=== PATIENT | female | born 1960 | race Caucasian/White ===

== ENCOUNTER → 2024-12-04 14:40 | Outpatient (BNVA) | payer OTHER, SELFPAY | PROVIDERS: Visit Provider Specialist | DX: G56.03 Carpal tunnel syndrome, bilateral upper limbs (principal); M19.041 Primary osteoarthritis, right hand; M19.042 Primary osteoarthritis, left hand; M06.4 Inflammatory polyarthropathy | CPT/HCPCS: 36415; 73110; 80053; 84550; 85025; 85651; 86140; 86200; 86225; 86235; 86431; 99204 ==

== ENCOUNTER 2025-03-09 01:54 | Emergency (ER) | payer OTHER, SELFPAY ==
--- OUTSIDE RECORDS SUMMARY | 2025-03-09 01:58 | XMS_ITS | Clinical Summary ---
Author Organization [facility] Address [address] [facility] [address] [place] [address] Phone Care Team Providers Care Sales Driver Name Role Phone Kishan Baker MD Primary Care Provider [phone] Allergies Active Allergy Reactions Criticality Noted Date Comments Azithromycin Hives High 05/30/2024 Cefazolin Hives High 05/24/2024 Cephalexin Hives High 05/24/2024 Medications albuterol (PROVENTIL,VENTOLI N) 2.5 mg /3 mL (0.083 %) Solution for NebulizationIndica tions:Panlobular emphysema (CMS/HCC) Take 3 mL (2.5 mg) by inhalation every 4 hours as needed for Shortness of Breath or Wheezing. 300 mL 08/07/19 25 Active albuterol sulfate HFA 90 mcg/actuation aerosol inhalerIndications :Panlobular emphysema (CMS/HCC) Take 2 Puffs by inhalation every 4 hours as needed for Shortness of Breath or Wheezing. 18 Gram 08/07/19 25 Active budesonide-formote roL (SYMBICORT) 160-4.5 mcg/actuation HFA Aerosol InhalerIndications :Panlobular emphysema (CMS/HCC) Take 2 Puffs by inhalation 2 times daily. 10.2 Gram 08/07/19 25 Active busPIRone (BUSPAR) 5 mg tabletIndications: SHANE (generalized anxiety disorder) Take 1 Tablet (5 mg) by mouth 2 times daily. Replaces xanax 60 Tablet 08/07/19 25 Active cetirizine (ZyrTEC) 10 mg tabletIndications: Seasonal allergic rhinitis, unspecified trigger Take 1 Tablet (10 mg) by mouth daily. 100 Tablet 1 08/07/19 25 Active cyclobenzaprine (FLEXERIL) 10 mg tabletIndications: Chronic bilateral low back pain with bilateral sciatica,S/P spinal surgery Take 1 Tablet (10 mg) by mouth 3 times daily as needed for Spasm. 90 Tablet 5 08/07/19 25 Active ferrous sulfate 325 mg (65 mg iron) tabletIndications: Iron deficiency anemia secondary to inadequate dietary iron intake Take 1 Tablet (325 mg) by mouth daily. 100 Tablet 3 08/07/19 25 Active naloxone (NARCAN) 4 mg/spray [place], Non-Aerosol Administer 1 [place] (4 mg) in one nostril (alternate nostril with each dose) one time as needed for Respiration (slowed with opioid use). Push plunger to administer. Call 911. May repeat dose, every 2-3 minutes, if the person does not wake up or breathing is not improved. 1 Each 2 08/07/19 25 Active pravastatin (PRAVACHOL) 40 mg tabletIndications: Mixed hyperlipidemia Take 1 Tablet (40 mg) by mouth daily with supper. 100 Tablet 3 08/07/19 25 Active valACYclovir (VALTREX) 1 gram tabletIndications: Recurrent cold sores Take 2 g twice daily for 1 day at the onset of cold sore 30 Tablet 1 08/07/19 25 Active diphenhydrAMINE (BENADRYL) 25 mg tablet Take 25 mg by mouth. Active oxyBUTYnin (DITROPAN XL) 10 mg Extended Release 24 hour tabletIndications: Urinary frequency Take 1 Tablet (10 mg) by mouth daily. 30 Tablet 3 12/13/19 25 Active pregabalin (LYRICA) 50 mg Capsule Take 1 Capsule (50 mg) by mouth daily at bedtime. 30 Capsule 2 12/22/19 25 Active portable oxygenIndications: Chronic bilateral low back pain without sciatica,Shortness of breath,Panlobular emphysema (CMS/HCC) Face to Face completed within 30 days: yes Length of Need: 99 months By: Nasal Cannula Continuously at 2 L/min. 1 Each 12/22/19 25 Active oxygen home deliveryIndication s:Chronic bilateral low back pain without sciatica,Shortness of breath,Panlobular emphysema (CMS/HCC) Home Oxygen Concentrator yes at 2 L/M Rest, 2 L/M Activity, 2 L/M Sleep, Delivery Device: Nasal Cannula Portability: yes, 2 L/M Rest, 2 L/M Activity, May provide device best for patient needs(E system,home fill, conserving device) Length of Need: 99 months 1 Each 12/22/19 25 Active DULoxetine (Cymbalta) 60 mg Capsule, Delayed Release(E.C.)Indic ations:SHANE (generalized anxiety disorder),Chronic bilateral low back pain with bilateral sciatica,Moderate episode of recurrent major depressive disorder (CMS/HCC) Take 1 Capsule (60 mg) by mouth 2 times daily. 180 Capsule 1 12/26/19 25 Active pregabalin (LYRICA) 50 mg Capsule Take 1 Capsule (50 mg) by mouth daily at bedtime. 2-week supply while waiting for mail order 14 Capsule 12/28/19 25 Active meloxicam (MOBIC) 7.5 mg tablet Take 1 Tablet (7.5 mg) by mouth daily. 30 Tablet 5 01/04/20 25 Active triamcinolone acetonide (KENALOG) 0.1 % CreamIndications:P ruritic rash APPLY CREAM EXTERNALLY TO AFFECTED AREA TWICE DAILY 80 Gram 1 01/09/20 25 Active traZODone (DESYREL) 100 mg tabletIndications: Moderate episode of recurrent major depressive disorder (CMS/HCC) Take 1 Tablet (100 mg) by mouth daily at bedtime. 90 Tablet 1 02/10/20 25 Active traZODone (DESYREL) 100 mg tabletIndications: Moderate episode of recurrent major depressive disorder (CMS/HCC) Take 1 Tablet (100 mg) by mouth daily at bedtime. 90 Tablet 1 12/26/19 25 025 Discontin ued(Reord er) Active Problems Problem Noted Date Diagnosed Date Chronic respiratory failure with hypoxia 025 Cellulitis of upper extremity 10/10/2024 Flexural atopic dermatitis 10/10/2024 Methamphetamine abuse 08/03/2024 Panlobular emphysema 08/03/2024 Tobacco use 08/03/2024 Protein-calorie malnutrition, moderate History of lung cancer 08/03/2024 S/P lobectomy of lung 08/03/2024 S/P spinal surgery 08/03/2024 PAD (peripheral artery disease) 06/12/2024 Claudication of both lower extremities Moderate episode of recurrent major depressive d isorder 05/30/2024 Chronic neck pain 05/30/2024 Chronic bilateral low back pain with bilateral s ciatica 05/30/2024 SHANE (generalized anxiety disorder) 05/30/2024 Mixed hyperlipidemia 05/30/2024 Resolved Problems Problem Noted Date Diagnosed Date Resolved Date Acute on chronic low back pain 06/12/2024 08/03/2024 Encounters Date Type Department Care Team Description 02/13/2025 External Device Data [facility] ABSTRACTION Provider, Abstract 02/09/[address] [phone] Kishan Baker MD Pharmacy Change 01/08/[address] [phone] Deyanira Wright, CARSON Pruritic rash 01/03/2025 Orders Only [facility] [address] [place] [address] Kishan Baker MD 01/03/2025 Results Follow-Up [facility] [address] [place] [address] Kishan Baker MD XR HAND 3+ VW LEFT 01/03/[address] [phone] Kishan Baker MD Results 12/28/2024 Results Follow-Up [address] [phone] Deyanira Wright, CARSON XR CHEST PA AND LATERAL 2 VW 12/27/2024 11:18 AM CDT - 12/27/2024 11:59 PM CDT Hospital Encounter [facility] [address] [place] [phone] Kishan Baker MD Discharge Disposition: Home or Self Care 12/27/2024 11:17 AM CDT - 12/27/2024 11:59 PM CDT Hospital Encounter [facility] [address] [phone] Deyanira Wright NP Marino, Joseph Aaron, MD Discharge Disposition: Home or Self Care 12/27/[address] [phone] Kishan Baker MD Pharmacy Change 12/25/2024 1:40 PM CDT Video Visit [address] [phone] Kishan Baker MD Chronic respiratory failure with hypoxia (CMS/HCC) (Primary Dx); SHANE (generalized anxiety disorder); Chronic bilateral low back pain with bilateral sciatica; Moderate episode of recurrent major depressive disorder (CMS/HCC); Left hand pain; Panlobular emphysema (CMS/HCC) 12/25/[address] [phone] Kishan Baker MD Home Monitoring Video Visit; Patient Communication 12/21/2024 4:20 PM CDT Office Visit [address] [phone] Deyanira Wright NP Shortness of breath (Primary Dx); Chronic bilateral low back pain without sciatica; Wheezing; Panlobular emphysema (CMS/HCC) 12/21/[address] [phone] Kishan Baker MD Breathing Problem 12/18/[address] [phone] Kishan Baker MD 12/14/2024 Telephone [facility] [address] [address] Rosemary Shyanne Bradshaw, TRANSITION MGR Referral 12/13/2024 5:00 PM CDT Office Visit [address] [phone] Arash Madeleine Kisha, LINE INSTALLER REPAIRER Left hand pain (Primary Dx); Pneumonia due to infectious organism, unspecified laterality, unspecified part of lung 12/13/[address] [phone] Mindy Antoineily Kisha, LINE INSTALLER REPAIRER Left hand pain (Primary Dx) 12/13/[address] [phone] Kishan Baker MD Carpal Tunnel 12/12/2024 Orders Only [address] [phone] Deyanira Wright, HOME ECONOMIST Urinary frequency 12/12/[address] [phone] Kishan Baker MD Question 12/08/[address] [phone] Kishan Baker MD Information from Last 3 Months Immunizations Immunization Administration Dates Next Due INFLUENZA VACCINE TRIVALENT SPLIT VIRUS, (6 MOS UP), 0.5ML (PF), IM 05/30/2024 Family History Medical History Relation Name Comments Breast Cancer Mother Colon Cancer Neg Hx Relation Name Status Comments Mother Social History Tobacco Use Types Packs/Day Years Used Date Smoking Tobacco: Every Day Cigarettes 1 45.7 Started: 1979 Smokeless Tobacco: Never Tobacco Cessation:Ready to Q uit: No; Counseling Given: Yes Alcohol Use Standard Drinks/Week Comments Yes 0 (1 standard drink = 0.6 oz pur e alcohol) Feeling Safe Answer Date Recorded Are you in a relationship wi th someone who hurts you emotionally and/or physically? No 10/10/2024 Comments No Sex and Gender Information Value Date Recorded Sex Assigned at Not on file Legal Sex Female 12:15 PM BASKET PATCHER Gender Identity Not on file Sexual Orientation Not on file Last Filed Vital Signs Vital Sign Reading Time Taken Comments Blood Pressure 92/56 12/21/2024 4:13 PM CDT Pulse 103 12/21/2024 4:13 PM CDT Temperature 36.4 C (97.6 F) 12/21/2024 4:13 PM CDT Respiratory Rate 20 12/21/2024 4:13 PM CDT Oxygen Saturation 90% 12/21/2024 4:13 PM CDT RA Inhaled Oxygen Concentration - - Weight 49 kg (108 lb) 12/25/2024 2:02 PM CDT Height 162.6 cm (5' 4 ) 12/25/2024 2:02 PM CDT Body Mass Index 18.54 12/25/2024 2:02 PM CDT Plan of Treatment Upcoming Encounters Date Type Department Care Team (Late st Contact Info) Description 03/09/2025 10:00 AM CDT Office Visit [facility] [address] [phone] Marianela Garber, CHANDA [address] [address] 03/09/2025 11:45 AM CDT Telemed [facility] Telemed[facility] - [place] [address] [place] [address] Abran Hou MD [address] [facility] [place] [address] 03/27/2025 2:00 PM CDT Telemed [facility] - [place] [address] [place] [address] Kishan Baker MD [address] [place] [address] Jasmin Chavarria, CARSON [address] [place] [address] 06/19/2025 3:00 PM BASKET PATCHER Office Visit [facility] Rheumatology- Jose Farley [address] [place] [address] Ana Evans MD [address] [place] [address] Health Maintenance Due Date Last Done Comments DTAP/TDAP/TD VACCINES (1 - Tdap) 09/30/1979 HPV/Cotest (21-29) 1981 CERVICAL CANCER SCREENING 1990 HPV/Cotest (30-65) 1990 PAP SMEAR 1990 BREAST CANCER SCREENING 2000 COLORECTAL SCREENING 2005 Colorectal Cancer Screening 2005 FIT-DNA Q 3 years 2005 FIT/FOBT Q 1 year 2005 Flex Sig/CT Colonography Q 5 years 2005 ZOSTER VACCINE (1 of 2) 2010 RSV VACCINE (60+ or ) (1 - Risk 60-74 years 1-dose series) 2020 INFLUENZA VACCINE (#1) 2025 05/30/2024 Procedures Procedure Name Priority Date/Time Associated Diagnosis Comments XR HAND 3+ VW LEFT Routine 12/27/2024 11 :36 AM CDT Left hand pain XR CHEST PA AND LATERAL 2 VW Routine 12/27/2024 11:36 AM CDT Shortness of breath Wheezing from Last 3 Months Results * XR HAND 3+ VW LEFT (12/27/2024 11:36 AM CDT) Anatomical Region Laterality Modality Wrist / Hand Computed Radiogr aphy 12/27/2024 11:3 6 AM CDT Impressions 12/28/2024 5:16 AM CDT IMPRESSION: Please see below. Exam: XR HAND 3+ VW LEFT Date/Time of Exam: 12/27/2024 11:36 AM Reason For Exam: See Diagnosis. Diagnosis: Left hand pain. Comparison: None Findings: No fracture or significant focal osseous abnormality. Moderate degenerative changes at the trapezium/trapezoid and to a lesser degree scaphoid and first carpal metacarpal articulations. Moderate degenerative changes at the first through fifth DIP and to a lesser degree second through fifth PIP joint spaces. No soft tissue swelling. IMPRESSION: 1. Osteoarthritis. Narrative Procedure Note Ian Lemus MD - 12/28/2024 IMPRESSION: Please see below. Exam: XR HAND 3+ VW LEFT Date/Time of Exam: 12/27/2024 11:36 AM Reason For Exam: See Diagnosis. Diagnosis: Left hand pain. Comparison: None Findings: No fracture or significant focal osseous abnormality. Moderate degenerative changes at the trapezium/trapezoid and to a lesser degree scaphoid and first carpal metacarpal articulations. Moderate degenerative changes at the first through fifth DIP and to a lesser degree second through fifth PIP joint spaces. No soft tissue swelling. IMPRESSION: 1. Osteoarthritis. Kishan Baker MD DIAGNOSTIC IMAGING ORDERA BLES Final Result * XR CHEST PA AND LATERAL 2 VW (12/27/2024 11:36 AM CDT) Anatomical Region Laterality Modality Chest Computed Radiogr aphy 12/27/2024 11:3 6 AM CDT Impressions 12/27/2024 2:59 PM CDT IMPRESSION: No new acute radiographic findings or significant interval change. Narrative 12/27/2024 2:59 PM CDT EXAM: XR CHEST PA AND LATERAL 2 VW DATE/TIME OF EXAM: 12/27/2024 11:36 AM REASON FOR EXAM: See Diagnosis DIAGNOSIS: Shortness of breath; Wheezing COMPARISON: 10/25/2024 FINDINGS: - Lines/tubes: None. - Cardiomediastinal: Contours are within normal limits. - Lungs/pleura: Similar radiographic appearance of the lungs with large lung volumes, probable minor scarring in the right lung base, and question of a small chronic pleural effusion versus scarring at the right costophrenic angle. No new pulmonary opacities. No visible pneumothorax. - Bones and soft tissues: No acute abnormalities. - Additional comments: None. Procedure Note Cuauhtemoc Rossi MD - 12/27/2024 EXAM: XR CHEST PA AND LATERAL 2 VW DATE/TIME OF EXAM: 12/27/2024 11:36 AM REASON FOR EXAM: See Diagnosis DIAGNOSIS: Shortness of breath; Wheezing COMPARISON: 10/25/2024 FINDINGS: - Lines/tubes: None. - Cardiomediastinal: Contours are within normal limits. - Lungs/pleura: Similar radiographic appearance of the lungs with large lung volumes, probable minor scarring in the right lung base, and question of a small chronic pleural effusion versus scarring at the right costophrenic angle. No new pulmonary opacities. No visible pneumothorax. - Bones and soft tissues: No acute abnormalities. - Additional comments: None. IMPRESSION: No new acute radiographic findings or significant interval change. Deyanira Wright NP DIAGNOSTIC IMAGING ORDERABLES Final Result from Last 3 Months Insurance [facility] Care Teams Sales Driver Relationship Specialty Start Date End Date Kishan Baker MD [address] [address] PCP - General Family Practice 05/30/24
--- NOTE | 2025-03-09 02:02 | XRR_ITS ---
PROCEDURE INFORMATION: Exam: XR Chest Exam date and time: 03/09/2025 2:10 AM Age: 64 years old Clinical indication: PT. Brought in by [facility] EMS with complaint of intoxication and possible syncope. EMS reports that the family called them out for syncope and when they arrived she was awake and alert. PT. States that she had 2 fireball TECHNIQUE: Imaging protocol: Radiologic exam of the chest. Views: 1 view. COMPARISON: No relevant prior studies available. FINDINGS: Lungs: Subsegmental atelectasis and/or scarring of the right lower lobe is present. Question of patchy airspace opacities in the bilateral lung bases versus overlying breast tissue attenuation. Suggested cephalization of the vessels, which can be seen in emphysema. Pleural spaces: Unremarkable. No pleural effusion. No pneumothorax. Heart/Mediastinum: Unremarkable. No cardiomegaly. Bones/joints: Partially imaged spinal fusion hardware. XR/XR chest 1V portable [id number] IMPRESSION: Question of basilar atelectasis/airspace disease versus overlying artifactual soft tissue attenuation.
[2025-03-09 02:03] VITALS: BP 96/57; PULSE 103; RESP 18; TEMP 36.9; O2SAT 97; BMI 21.2
--- NOTE | 2025-03-09 02:03 | ECG_ITS ---
[facility] Date: 2025-03-09 Pat Name: Christie Rangel Department: Room: Gender: Female Assistant Plant Manager: : 1960 Requested By: Kishan Roche Order Number: [id number] Mathews MD: Lonnie Sawant M.D. Measurements Intervals [place]ham Rate: 87 P: 75 TX: 148 QRS: 83 QRSD: 82 T: 90 QT: 402 QTc: 485 Interpretive Statements SINUS RHYTHM No previous ECG available for comparison Electronically Signed On 03-10-2025 13:08:50 CDT by Lonnie Sawant M.D. [email or web address]
[2025-03-09 02:34] LABS: Hematocrit 40.9 % (36-47); Hemoglobin 13.40 g/dL (11.27-16.99); Mean Corpuscular HGB Conc 32.8 g/dL (30-55); Mean Corpuscular Hemoglobin 28.3 pg (27-33); Mean Corpuscular Volume 86.3 fl (85-98); Nucleated Red Blood Cells % 0 %; Platelet Count 337 10^3/cmm (157-399); Red Blood Count 4.74 10^6/uL (3.85-5.65); White Blood Count 9.25 10^3/uL (3.29-11.43)
[2025-03-09] MEDS: ondansetron 2 mg/ML SDV 2 mL 4 MG IVP (02:36)
[2025-03-09 02:52] LABS: Alanine Aminotransferase 23 U/L (0-33); Albumin Level 4.2 g/dL (3.5-5.2); Alcohol Level 272 mg/dL (0-10); Alkaline Phosphatase 103 U/L (35-105); Aspartate Amino Transferase 55 U/L (0-32); Blood Urea Nitrogen 9 mg/dL (8-23); Calcium 9.7 mg/dL (8.5-10.5); Carbon Dioxide 27 mmol/L (22-29); Chloride 98 mmol/L (98-107); Creatinine Clr Calc Pharmacy 55.1473; Globulin 2.8 g/dL (1.3-4.6); Glucose 103 mg/dL (65-115); Osmolality Calculated 291 mOsm/kg (285-295); Sodium 141 mmol/L (136-145); Total Protein 7.0 g/dL (6.6-8.7)
[2025-03-09 03:01] LABS: Anion Gap 19.9 (5-19); Potassium 3.9 mmol/L (3.5-5.1)
--- NOTE | 2025-03-09 03:35 | W.ED.ALCOHOL ---
HPI - Alcohol General: Chief Complaint: Alcohol Stated Complaint: ETOH Time Seen by Provider: 03/09/25 01:54 History of Present Illness: 64 yo F brought by EMS after passing out at a gathering where she had been drinking. Prearrival report notes she ?passed out? after alcohol intake; friends called EMS. Intake unclear: staff referenced ?two Fireball and two beers,? while pt reports ?two drinks.? Pt states she used to be a ?bad alcoholic? but not anymore. There was mention that she ?told me she had chest pain probably,? though pt does not clearly endorse ongoing chest pain in the encounter. Pt was cold on arrival; requested blanket and help to the bathroom. Related Data Home Medications ?Medication ?Instructions ?Recorded ?Confirmed cetirizine 10 mg disintegrating 10 mg PO DAILY 12/04/24 01/01/25 tablet cyclobenzaprine 10 mg tablet 10 mg PO TID 12/04/24 01/01/25 duloxetine 60 mg capsule,delayed 60 mg PO DAILY 12/04/24 01/01/25 release ferrous sulfate 325 mg (65 mg 325 mg PO DAILY 12/04/24 01/01/25 iron) tablet pravastatin 40 mg tablet 40 mg PO DAILY 12/04/24 01/01/25 trazodone 100 mg tablet 100 mg PO DAILY 12/04/24 01/01/25 Allergies Allergy/AdvReac Type Severity Reaction Status Date / Time azithromycin (From Zithromax Allergy ADR-Itching Verified 01/01/25 10:10 Z-Nahun) cephalexin (From Keflex) Allergy ALGY-Hives Verified 01/01/25 10:10 [facility] ED PFSH: Social History Smoking and tobacco/nicotine status: current every day tobacco/nicotine user Physical Exam Const: COMMON NORMALS: no acute distress, patient oriented x3 and alert HENMT: COMMON NORMALS: normocephalic and atraumatic HEAD & SCALP: normocephalic and atraumatic Eye: COMMON NORMALS: Equal, round and reactive pupils present, EOMs intact bilaterally and no scleral icterus PUPIL: Yes Equal, round and reactive pupils present Resp: COMMON NORMALS: normal respiratory effort and No retractions Cardio: COMMON NORMALS: regular rate, regular rhythm and No murmurs present (Cardio) RATE: regular rate RHYTHM: regular rhythm GI: COMMON NORMALS: Normal to inspection, nondistended, normoactive bowel sounds present, Soft to palpation and non-tender PALPATION: Yes Soft to palpation Neuro: COMMON NORMALS: patient oriented x3 SENSORIUM/ORIENTATION: Yes alert OTHER: Mildly slurred speech. Skin: COMMON NORMALS: no rashes or lesions noted GENERAL SKIN EXAM: no rashes or lesions noted Course Vital Signs: Vital signs: Vital Signs Temperature 98.4 F 03/09/25 02:03 Pulse Rate 103 H 03/09/25 02:03 Respiratory Rate 18 03/09/25 02:03 Blood Pressure 96/57 03/09/25 02:03 Pulse Oximetry 97 03/09/25 02:03 MDM - Alcohol Medical Decision Making 64 yo F brought by EMS after alcohol intake with reported syncope. Intake unclear (pt says two drinks). There was a mention she ?probably? had chest pain, but this was not clearly confirmed during interview. EKG, chest x-ray, labs reassuring. Alcohol level is 272, which likely represents the cause of her brief unresponsive episode. She will be observed in the emergency department till such time that she has adequately metabolized and is safe for discharge. Patient is agreeable to the plan. EKG: Time?0203?normal sinus rhythm, rate of 87, no ST segment elevation or depression, no T wave inversions, QTc = 446 Lab Data 03/09/25 02:26 03/09/25 02:26 Radiology Impressions Chest X-Ray 03/09/25 02:02 IMPRESSION: Question of basilar atelectasis/airspace disease versus overlying artifactual soft tissue attenuation. Laboratory Results WBC 9.25 10^3/uL (3.29-11.43) 03/09/25 02:26 RBC 4.74 10^6/uL (3.85-5.65) 03/09/25 02:26 Hgb 13.40 g/dL (11.27-16.99) 03/09/25 02:26 Hct 40.9 % (36-47) 03/09/25 02:26 MCV 86.3 fl (85-98) 03/09/25 02:26 MCH 28.3 pg (27-33) 03/09/25 02:26 MCHC 32.8 g/dL (30-55) 03/09/25 02: RDW 13.8 % (12.1-15.1) 03/09/25 02:26 Plt Count 337 10^3/cmm (157-399) 03/09/25 02:26 MPV 9.2 fL (7.4-10.4) 03/09/25 02:26 Neut % (Auto) 56.9 % 03/09/25 02:26 Lymph % (Auto) 35.4 % 03/09/25 02:26 Elbert % (Auto) 5.9 % 03/09/25 02:26 Eos % (Auto) 1.0 % 03/09/25 02:26 Baso % (Auto) 0.5 % 03/09/25 02: Neut # (Auto) 5.26 10^3/uL (1.8-7.7) 03/09/25 02: Lymph # (Auto) 3.3 10^3/uL (0.8-4.8) 03/09/25 02:26 Elbert # (Auto) 0.6 10^3/uL (0.2-0.9) 03/09/25 02:26 Eos # (Auto) 0.1 10^3/uL (0.0-0.8) 03/09/25 02:26 Baso # (Auto) 0.1 10^3/uL (0.0-0.1) 03/09/25 02:26 Nucleated RBC % (auto) 0 % 03/09/25 02:26 Nucleated RBCs # 0.0 /100WBC 03/09/25 02:26 Sodium 141 mmol/L (136-145) 03/09/25 02:26 Potassium 3.9 mmol/L (3.5-5.1) 03/09/25 02:26 Chloride 98 mmol/L (98-107) 03/09/25 02:26 Carbon Dioxide 27 mmol/L (22-29) 03/09/25 02:26 Anion Gap 19.9 (5-19) H 03/09/25 02:26 BUN 9 mg/dL (8-23) 03/09/25 02:26 Creatinine 0.9 mg/dL (0.5-0.9) 03/09/25 02:26 GFR Calculation 63.0 mL/min (90-130) L 03/09/25 02:26 Glucose 103 mg/dL (65-115) 03/09/25 02:26 Calculated Osmolality 291 mOsm/kg (285-295) 03/09/25 02:26 Calcium 9.7 mg/dL (8.5-10.5) 03/09/25 02:26 Total Bilirubin 0.2 mg/dL (0.15-1.2) 03/09/25 02:26 AST 55 U/L (0-32) H 03/09/25 02:26 ALT 23 U/L (0-33) 03/09/25 02:26 Alkaline Phosphatase 103 U/L (35-105) 03/09/25 02:26 Total Protein 7.0 g/dL (6.6-8.7) 03/09/25 02:26 Albumin 4.2 g/dL (3.5-5.2) 03/09/25 02:26 Globulin 2.8 g/dL (1.3-4.6) 03/09/25 02:26 Ethyl Alcohol 272 mg/dL (0-10) H 03/09/25 02:26 All radiology interpretation(s) finalized by discharge Discharge Plan Discharge Condition: Stable Prescriptions: No Action duloxetine 60 mg capsule,delayed release(DR/EC) 60 mg PO DAILY cyclobenzaprine 10 mg tablet 10 mg PO TID pravastatin 40 mg tablet 40 mg PO DAILY trazodone 100 mg tablet 100 mg PO DAILY ferrous sulfate 325 mg (65 mg iron) tablet 325 mg PO DAILY cetirizine 10 mg tablet,disintegrating 10 mg PO DAILY Print Language: Honduran Coding Level of Care Code ED World Geography Teacher for Max Jim
[2025-03-09 03:56] VITALS: BP 99/67; PULSE 105; RESP 18; O2SAT 96
== END 2025-03-09 03:57 | disposition home or self-care (01) ==
PROVIDERS: Emergency Provider Student in an Organized Health Care Education/Training Program
DX: R55 Syncope and collapse (principal); F10.129 Alcohol abuse with intoxication, unspecified; Y90.8 Blood alcohol level of 240 mg/100 ml or more; Z72.0 Tobacco use
CPT/HCPCS: 36415; 71045; 80053; 80307; 85025; 93005; 96374; 99285; J2405; J7030